=== PATIENT | male | born 1945 | race Two or more races ===

== ENCOUNTER 2017-08-27 22:31 | Inpatient (IN) | payer MEDICARE ==
[~2017-08-27] VITALS: Ht 182.9 cm; Wt 81.6 kg
[2017-08-27] MEDS ORDERED: MAGNESIUM HYDROXIDE 30 ML UDC PO PRN (23:30)
[2017-08-27] MEDS ORDERED: MAG HYDROX/AL HYDROX/SIMETH 30 ML UDC PO PRN (23:30)
[2017-08-27] MEDS ORDERED: DICL25TA10 (23:32)
[2017-08-27] MEDS ORDERED: IBUP-1955 (23:32)
[2017-08-27] MEDS ORDERED: AMLO10TA2 (23:32)
[2017-08-27] MEDS ORDERED: LISI40TA4 (23:32)
[2017-08-27] MEDS ORDERED: TAMS0.4C34 (23:32)
[2017-08-27] MEDS ORDERED: FOLI0.4T2 (23:32)
[2017-08-27] MEDS ORDERED: FLUT16SP (23:32)
[2017-08-27] MEDS ORDERED: BENA20TA78 (23:32)
[2017-08-27 23:58] VITALS: BP 133/71
--- NOTE | 2017-08-27 23:59 | NUR ---
ADMISSION NOTES ADMITTED THIS 72 Y/O MALE PATIENT DIRECT ADMIT FROM [facility]. PT IS ON 5150 HOLD FOR GD PER HOLD BIZARRE BEHAVIOR DISORIENTED , UNABLE TO CARE FOR HIM SELF UPON FACE TO FACE ASSESSMENT PATIENT IS A&O X1-2, DISORIENTED DISORGANIZED THOUGHTS DISHEVELD , IRRITABLE, EASILY AGITATED AND EASILY GETS CONFUSED,THE PT. MOOD S DYSPHORIC , DEPRESSED PT. IS POOR HISTORIAN, POOR INSIGHT ,POOR JUDGEMENT ,V/S WNL, NO ACUTE RESPIRATORY BOTH MD AWARE AND NOTIFIED OF THE ADMISSION. SKIN ASSESSMENT DONE,NOTED MULTIPLES SCABS AND BRUSIES PICTURE TAKEN AND PLACED IN THE CHART . MRSA SWAB NARES TAKEN. BELONGINGS AND CONTRABAND CHECKED AND PLACED IN THE SAFE CABINET. PATIENT RIGHT HAND BOOK GIVEN AND EXPLAINED TO THE PT. ALL NEEDS ATTENDED AND ANTICIPATED.ENCOURAGED PT. VERVALIZED ANY FEELING OR CONCERN TO STAFF, ORIENTED TO UNIT WILL CONTINUE TO MONITOR FOR SAFETY AND BEHAVIOR.
[2017-08-28 06:06] VITALS: BP 133/71
--- NOTE | 2017-08-28 06:20 | NUR ---
RN GPS NOTES PT. SLEPT 6.5 HOURS , SHOWER GIVEN , BILATERAL LOWER EXTREMITIES NON PITTING EDEMA NOTED , NO ACUTE DISTRESS NOTED ,WILL CONTINUE TO MONITOR
[2017-08-28 06:45] LABS: ALANINE AMINOTRANSFERASE 17 U/L (12-78); ALBUMIN 2.3 g/dL (3.4-5.0); ALKALINE PHOSPHATASE 74 U/L (46-116); ASPARTATE AMINOTRANSFERASE 29 U/L (15-37); BILIRUBIN,TOTAL 0.7 mg/dL (0.2-1.0); CALCIUM, SERUM 8.7 mg/dL (8.5-10.1); CARBON DIOXIDE 27 mmol/L (21-32); CHLORIDE 111 mmol/L (98-107); CHOLESTEROL 117 mg/dL (<200); CREATININE 1.6 mg/dL (0.6-1.3); GLUCOSE 143 mg/dL (74-106); HDL CHOLESTEROL 46 mg/dL (40-60); LDL 59 mg/dL (0-99); POTASSIUM 3.6 mmol/L (3.5-5.1); SODIUM SERUM 144 mmol/L (136-145); TOTAL PROTEIN, SERUM 6.4 g/dL (6.4-8.2); TRIGLYCERIDES 73 mg/dL (30-150); UREA NITROGEN, BLOOD 32 mg/dL (7-18)
--- NOTE | 2017-08-28 07:04 | NUR ---
RN GPS NOTES PT. SLEPT 6.5 HOURS , BILATERAL LOWER EXTREMITIES NON PITTING EDEMA NOTED , POSTERIOR HEAD ABRASIONS NOTED, DRY SKIN AND GENERALIZED SCABS SCATTERED IN DIFFERENT PARTS OF THE BODY NOTED , PT. HAS VERY POOR HYGINE NOTED AND SHOWER GIVEN, NO ACUTE DISTRESS NOTED ,ENDORSE TO NEXT SHIFT FOR CONTINUITY OF CARE .
[2017-08-28 08:00] VITALS: BP 124/68
[2017-08-28] MEDS: FLUTICASONE PROPIONATE 16 GM BOTTLE NS SCH (09:00)
[2017-08-28] MEDS: BENAZEPRIL HCL 20 MG TABLET PO SCH (09:00)
[2017-08-28] MEDS ORDERED: IBUPROFEN 600 MG TABLET PO PRN (09:00)
[2017-08-28] MEDS: AMLODIPINE BESYLATE 10 MG TABLET PO SCH (09:00)
[2017-08-28] MEDS: clonazePAM 0.5 MG TABLET PO PRN (09:22)
[2017-08-28] MEDS: TAMSULOSIN 0.4 MG CAP.SR.24H PO SCH (09:23)
--- NOTE | 2017-08-28 11:03 | NUR ---
WOUND CARE CONSULT: PT PRESENTS WITH DRY SCABS, SCRATCHES AND DRY ABRASIONS ALL OVER BODY INCLUDING HEAD. NO DRAINAGE NOTED. PT INCONTINENT. RECOMMENDATIONS MADE FOR SKIN PROTECTION AND DISCUSSED WITH NURSING STAFF. WILL SEE PRN. MCCULLOUGH IN AGREEMENT WITH PLAN OF CARE. Addendum: 08/28/17 at 1107 by FISH CAMPBELL WNDNU LOWER EXTREMITY EDEMA NOTED, ESPECIALLY LEFT LOWER LEG. RECOMMEND ELEVATE LEGS. DISCUSSED WITH NURSING STAFF. CURRENT TOYA SCORE 23.
[2017-08-28] MEDS: Z GUARD REMEDY 2 OZ OINT TP SCH (12:47)
[2017-08-28 15:41] VITALS: BP 126/61
--- NOTE | 2017-08-28 16:29 | NUR ---
Initial Discharge Note: Patient resides alone in a house at [address], [address]. [phone] and wishes to return upon discharge. [employer] attempted to follow up with patient's son, David Elizondo at [phone] to confirm /validate some information but was unable to reach him at this time. [employer] left a message with detailed contact information. sheetmetal worker will follow up with son and attempt to get in touch. sheetmetal worker will also follow up with MD. sheetmetal worker will work to arrange safe and proper discharge for the patient.
[2017-08-28] MEDS: QUETIAPINE FUMARATE 25 MG TABLET PO SCH (16:39)
[2017-08-28 19:28] VITALS: BP 129/66
[2017-08-29 08:00] VITALS: BP 132/73
[2017-08-29] MEDS: TAMSULOSIN 0.4 MG CAP.SR.24H PO SCH (09:29)
[2017-08-29] MEDS: QUETIAPINE FUMARATE 25 MG TABLET PO SCH ×2 (09:30→17:30)
[2017-08-29] MEDS: AMLODIPINE BESYLATE 10 MG TABLET PO SCH (09:30)
[2017-08-29] MEDS: BENAZEPRIL HCL 20 MG TABLET PO SCH (09:30)
[2017-08-29] MEDS: Z GUARD REMEDY 2 OZ OINT TP SCH (09:31)
[2017-08-29] MEDS: FLUTICASONE PROPIONATE 16 GM BOTTLE NS SCH (09:32)
--- NOTE | 2017-08-29 15:09 | NUR ---
UZMA contacted pt's son, David Elizondo at [phone]. David stated that he was not sure but thinks that his father was at a rehab facility for a couple of months. David could not recall the name of the facility. David stated that he believed it was located in [place]. David stated that his father cannot return home because his condition is deteriorating and that David already takes care of his mother. David stated that he would like his father placed in a nursing facility if possible. UZMA will follow up. David also told SW that his father makes about $1200/month in SSI.
[2017-08-29 16:00] VITALS: BP 112/59
[2017-08-29 18:35] LABS: APPEARANCE,URINE SL CLOUDY (CLEAR); BILIRUBIN,URINE NEGATIVE (NEGATIVE); BLOOD, URINE 1+ Ery/uL (NEGATIVE); COLOR,URINE YELLOW (YELLOW); KETONES,URINE NEGATIVE (NEGATIVE); LEUKOCYTE ESTERASE ,URINE 3+ (NEGATIVE); NITRITE, URINE NEGATIVE (NEGATIVE); PH,URINE 5.5 (5.0-8.0); PROTEIN,URINE NEGATIVE (NEGATIVE); UGLUCOSE NEGATIVE (NEGATIVE); UROBILINOGEN,URINE 0.2 EU/dL (0.2)
[2017-08-29 19:31] VITALS: BP 122/62
[2017-08-29 19:48] LABS: BACTERIA,URINE Many /HPF (None Seen); SQUAMOUS EPITHELIAL CELL,UR Few /HPF (None Seen); WBC,URINE TOO NUMEROUS TO COUN /HPF (0-3)
[2017-08-30 08:00] VITALS: BP 118/68
[2017-08-30] MEDS: AMLODIPINE BESYLATE 10 MG TABLET PO SCH (08:19)
[2017-08-30] MEDS: TAMSULOSIN 0.4 MG CAP.SR.24H PO SCH (08:19)
[2017-08-30] MEDS: BENAZEPRIL HCL 20 MG TABLET PO SCH (08:19)
[2017-08-30] MEDS: QUETIAPINE FUMARATE 25 MG TABLET PO SCH ×3 (08:19→16:41)
[2017-08-30] MEDS: FLUTICASONE PROPIONATE 16 GM BOTTLE NS SCH (08:20)
[2017-08-30] MEDS: Z GUARD REMEDY 2 OZ OINT TP PRN (08:20)
[2017-08-30] MEDS: Z GUARD REMEDY 2 OZ OINT TP SCH (08:23)
[2017-08-30] MEDS ORDERED: LEVOFLOXACIN (500MG) 500 MG TABLET PO ONE (11:30)
--- NOTE | 2017-08-30 11:35 | NUR ---
UZMA faxed over an inquiry for potential placement to Anna from [facility], [address] [place] [address], . The fax number is: [phone]. UZMA contacted Anna to confirm the fax. UZMA will follow up.
--- NOTE | 2017-08-30 12:22 | NUR ---
Maya in admissions from [facility], [address] [place] [address], called and stated that the only concern about patient is that he is long-term and does not have [facility]. Maya stated that they can help apply the patient for [facility] but they will need some information from patient's son. UZMA stated that she will give the son a call and direct him to Maya. Maya stated that they can come and assess the patient on Sunday. UZMA will follow up with MD and will confirm with Maya once the okay is given by psychiatrist for assessment.
--- NOTE | 2017-08-30 14:36 | NUR ---
UZMA contacted pt's son, David [phone] and updated him on father's placement. UZMA stated that the facility would need some more information from him because they would like to help his father apply for [facility]. David stated that he would prefer it if the facility reached out to him and told UZMA that it would be okay for her to provide the facility with his cell phone number. UZMA reached out to Maya from [facility], [address] [place] [id number], and provided her with David's contact information.
--- NOTE | 2017-08-30 15:20 | NUR ---
Received a call from ultrasound and reported that pt. is retaining urine of 551 cc of urine and primary nurse Nikki made aware.
--- NOTE | 2017-08-30 15:32 | NUR ---
GPS/RN PATIENT VOIDING FREELY AT THIS TIME, NO PAIN, NO S/S OF DISTRESS, VOIDED 2X SINCE BEGINNING OF SHIFT, WILL CONTINUE TO MONITOR.
[2017-08-30 16:05] VITALS: BP 124/75
--- NOTE | 2017-08-30 17:30 | NUR ---
GPS/RN RESPIRATORY CAME TO OBTAIN EKG, PATIENT WAS EATING AND BECAME AGITATED, STATED THEY WOULD RETURN AT A LATER TIME TO OBTAIN EKG.
[2017-08-30 19:51] VITALS: BP 121/77
[2017-08-30 20:14] VITALS: BP 121/77
[2017-08-31 06:45] LABS: CALCIUM, SERUM 8.8 mg/dL (8.5-10.1); CARBON DIOXIDE 26 mmol/L (21-32); CHLORIDE 107 mmol/L (98-107); CREATININE 1.4 mg/dL (0.6-1.3); GLUCOSE 122 mg/dL (74-106); POTASSIUM 4.1 mmol/L (3.5-5.1); SODIUM SERUM 140 mmol/L (136-145); UREA NITROGEN, BLOOD 36 mg/dL (7-18)
[2017-08-31 08:00] VITALS: BP 100/60
[2017-08-31] MEDS: AMLODIPINE BESYLATE 10 MG TABLET PO SCH (09:00)
[2017-08-31] MEDS: BENAZEPRIL HCL 20 MG TABLET PO SCH (09:00)
[2017-08-31] MEDS: QUETIAPINE FUMARATE 25 MG TABLET PO SCH ×3 (09:22→16:29)
[2017-08-31] MEDS: TAMSULOSIN 0.4 MG CAP.SR.24H PO SCH (09:22)
[2017-08-31] MEDS: FLUTICASONE PROPIONATE 16 GM BOTTLE NS SCH (09:22)
[2017-08-31] MEDS: Z GUARD REMEDY 2 OZ OINT TP SCH (09:23)
[2017-08-31] MEDS: LEVOFLOXACIN (250MG) 250 MG TABLET PO SCH (12:06)
[2017-08-31 16:00] VITALS: BP 127/76
[2017-08-31 20:00] VITALS: BP_SYST 121; BP_SYST 140; BP_DIAS 73; BP_DIAS 80
--- NOTE | 2017-09-01 07:18 | NUR ---
asleep most of night,no c/o
[2017-09-01 08:00] VITALS: BP 135/75
[2017-09-01] MEDS: FLUTICASONE PROPIONATE 16 GM BOTTLE NS SCH (09:00)
[2017-09-01] MEDS: AMLODIPINE BESYLATE 10 MG TABLET PO SCH (09:00)
[2017-09-01] MEDS: TAMSULOSIN 0.4 MG CAP.SR.24H PO SCH (09:01)
[2017-09-01] MEDS: QUETIAPINE FUMARATE 25 MG TABLET PO SCH ×3 (09:01→16:20)
[2017-09-01] MEDS: BENAZEPRIL HCL 20 MG TABLET PO SCH (09:01)
[2017-09-01] MEDS: Z GUARD REMEDY 2 OZ OINT TP SCH (09:16)
[2017-09-01 16:00] VITALS: BP 127/81
[2017-09-01 20:00] VITALS: BP 165/73
[2017-09-01] MEDS: TEMAZEPAM 7.5 MG CAPSULE PO PRN (21:45)
[2017-09-02 07:56] VITALS: BP 130/70
[2017-09-02] MEDS: TAMSULOSIN 0.4 MG CAP.SR.24H PO SCH (08:16)
[2017-09-02] MEDS: BENAZEPRIL HCL 20 MG TABLET PO SCH (08:16)
[2017-09-02] MEDS: QUETIAPINE FUMARATE 25 MG TABLET PO SCH ×3 (08:16→16:59)
[2017-09-02] MEDS: FLUTICASONE PROPIONATE 16 GM BOTTLE NS SCH (08:17)
[2017-09-02] MEDS: AMLODIPINE BESYLATE 10 MG TABLET PO SCH (08:17)
[2017-09-02] MEDS: Z GUARD REMEDY 2 OZ OINT TP SCH (08:18)
[2017-09-02] MEDS: LEVOFLOXACIN (250MG) 250 MG TABLET PO SCH (12:49)
[2017-09-02 16:00] VITALS: BP 105/54
--- NOTE | 2017-09-02 17:11 | NUR ---
GPS/RN PATIENT VOIDED 2X SINCE BEGINNING OF SHIFT, 1 SMALL BM , WILL CONTINUE TO MONITOR.
[2017-09-02 19:48] VITALS: BP 105/60
[2017-09-03 08:00] VITALS: BP 124/69
[2017-09-03] MEDS: TAMSULOSIN 0.4 MG CAP.SR.24H PO SCH (08:16)
[2017-09-03] MEDS: QUETIAPINE FUMARATE 25 MG TABLET PO SCH ×3 (08:16→16:57)
[2017-09-03] MEDS: AMLODIPINE BESYLATE 10 MG TABLET PO SCH (08:17)
[2017-09-03] MEDS: FLUTICASONE PROPIONATE 16 GM BOTTLE NS SCH (08:17)
[2017-09-03] MEDS: BENAZEPRIL HCL 20 MG TABLET PO SCH (08:17)
[2017-09-03] MEDS: Z GUARD REMEDY 2 OZ OINT TP SCH (08:19)
[2017-09-03 16:08] VITALS: BP 113/59
[2017-09-03 20:12] VITALS: BP 112/68
[2017-09-03] MEDS: TEMAZEPAM 7.5 MG CAPSULE PO PRN (21:55)
[2017-09-04 08:15] VITALS: BP 121/58
[2017-09-04] MEDS: TAMSULOSIN 0.4 MG CAP.SR.24H PO SCH (08:42)
[2017-09-04] MEDS: BENAZEPRIL HCL 20 MG TABLET PO SCH (08:42)
[2017-09-04] MEDS: QUETIAPINE FUMARATE 25 MG TABLET PO SCH ×3 (08:42→16:37)
[2017-09-04] MEDS: AMLODIPINE BESYLATE 10 MG TABLET PO SCH (08:42)
[2017-09-04] MEDS: Z GUARD REMEDY 2 OZ OINT TP SCH (08:44)
[2017-09-04] MEDS: FLUTICASONE PROPIONATE 16 GM BOTTLE NS SCH (08:44)
--- NOTE | 2017-09-04 09:50 | NUR ---
wine cellar worker spoke to Maya in admissions from [facility], [address] [place] [address], who stated that they cannot accept the patient stating that he would not be a fit for their unit and are afraid that he will walk out.
[2017-09-04] MEDS: LEVOFLOXACIN (250MG) 250 MG TABLET PO SCH (12:50)
[2017-09-04 15:59] VITALS: BP 125/69
--- NOTE | 2017-09-04 16:12 | NUR ---
UZMA faxed over an inquiry to Benoit from [facility], at fax number [phone]. UZMA will follow up.
[2017-09-04 20:24] VITALS: BP 126/75
[2017-09-04] MEDS: clonazePAM 0.5 MG TABLET PO PRN (21:14)
--- NOTE | 2017-09-04 21:15 | NUR ---
GPS/RN OTE: C/O ANXIETY, KLONOPIN .25 MG TAB PO GIVEN.
[2017-09-05] MEDS: QUETIAPINE FUMARATE 25 MG TABLET PO SCH ×3 (08:31→16:55)
[2017-09-05] MEDS: BENAZEPRIL HCL 20 MG TABLET PO SCH (08:31)
[2017-09-05] MEDS: TAMSULOSIN 0.4 MG CAP.SR.24H PO SCH (08:31)
[2017-09-05] MEDS: AMLODIPINE BESYLATE 10 MG TABLET PO SCH (08:31)
[2017-09-05] MEDS: FLUTICASONE PROPIONATE 16 GM BOTTLE NS SCH (08:32)
[2017-09-05] MEDS: Z GUARD REMEDY 2 OZ OINT TP SCH (08:32)
[2017-09-05 08:52] VITALS: BP 125/58
--- NOTE | 2017-09-05 09:20 | NUR ---
UZMA spoke with Benoit from [facility], who stated that they received the inquiry will review it.
--- NOTE | 2017-09-05 16:42 | NUR ---
Benoit in admissions from [facility], messaged UZMA and stated that the [facility] wants to assess the patient in person before offering placement. UZMA messaged that tomorrow would be a good time for assessment. UZMA did not hear back from Benoit. UZMA will follow up in the morning.
[2017-09-05 16:48] VITALS: BP 120/60
--- NOTE | 2017-09-05 18:23 | NUR ---
PER STEAMFITTER APPRENTICE NURSE, PT HAD 3 LIQUID, LOOSE STOOL DURING THE NIGHT. INFORMED DR RODRIGUEZ THIS MORNING. PER DR. RODRIGUEZ TO ORDER CDIFF SAMPLE WHEN PATIENT HAS A BM. PT DID NOT HAVE A BM DURING AM SHIFT. WILL ENDORSE TO NIGHT TO COLLECT STOOL WHEN PATIENT HAS A BM AND ORDER CDIFF SAMPLE COLLECTION PER DR. RODRIGUEZ.
[2017-09-05 20:07] VITALS: BP 128/64
[2017-09-05] MEDS: TEMAZEPAM 7.5 MG CAPSULE PO PRN (20:25)
[2017-09-06 06:30] LABS: BASOPHILS % (AUTO) 0.5 % (0.0-2.0); EOSINOPHILS # (AUTO) 0.1 /CMM (0.0-0.7); EOSINOPHILS % (AUTO) 3.1 % (0.0-6.0); HEMATOCRIT 28 % (39-51); HEMOGLOBIN 9.2 g/dL (13.5-17.5); LYMPHOCYTES # (AUTO) 1.3 /CMM (0.8-4.8); LYMPHOCYTES % (AUTO) 29.2 % (20.0-44.0); MEAN CORPUSCULAR HEMOGLOBIN 26 PG (26.0-33.0); MEAN CORPUSCULAR HGB CONC 33 g/dl (31.0-36.0); MEAN CORPUSCULAR VOLUME 79 fL (80-96); MONOCYTES # (AUTO) 0.3 /CMM (0.1-1.30); MONOCYTES % (AUTO) 7.2 % (2.0-12.0); NEUTROPHILS # (AUTO) 2.7 /CMM (1.8-8.9); PLATELET COUNT (AUTO) 138 /CMM (150-450); RDW COEFFICIENT OF VARIATION 17.9 (11.5-15.0); RED BLOOD CELL COUNT(AUTO) 3.52 MIL/uL (4.5-6.0); WHITE BLOOD COUNT (AUTO) 4.5 K/uL (4.3-11.0)
[2017-09-06 06:33] LABS: CALCIUM, SERUM 8.5 mg/dL (8.5-10.1); CREATININE 1.5 mg/dL (0.6-1.3); GLUCOSE 97 mg/dL (74-106); UREA NITROGEN, BLOOD 29 mg/dL (7-18)
[2017-09-06 06:42] LABS: ALBUMIN 2.3 g/dL (3.4-5.0); BILIRUBIN,DIRECT 0.1 mg/dL (0.0-0.2); BILIRUBIN,TOTAL 0.5 mg/dL (0.2-1.0); MAGNESIUM 1.9 mg/dL (1.8-2.4); PHOSPHORUS 3.3 mg/dL (2.5-4.9); TOTAL PROTEIN, SERUM 6.2 g/dL (6.4-8.2)
[2017-09-06 06:47] LABS: CARBON DIOXIDE 29 mmol/L (21-32); CHLORIDE 108 mmol/L (98-107); POTASSIUM 4.1 mmol/L (3.5-5.1); SODIUM SERUM 143 mmol/L (136-145)
[2017-09-06 08:23] VITALS: BP 115/64
[2017-09-06] MEDS: TAMSULOSIN 0.4 MG CAP.SR.24H PO SCH (09:09)
[2017-09-06] MEDS: AMLODIPINE BESYLATE 10 MG TABLET PO SCH (09:09)
[2017-09-06] MEDS: QUETIAPINE FUMARATE 25 MG TABLET PO SCH ×3 (09:09→17:34)
[2017-09-06] MEDS: BENAZEPRIL HCL 20 MG TABLET PO SCH (09:09)
[2017-09-06] MEDS: Z GUARD REMEDY 2 OZ OINT TP PRN (09:14)
[2017-09-06] MEDS: FLUTICASONE PROPIONATE 16 GM BOTTLE NS SCH (09:15)
[2017-09-06] MEDS: Z GUARD REMEDY 2 OZ OINT TP SCH (09:15)
--- NOTE | 2017-09-06 09:18 | NUR ---
Benoit in admissions from [facility], informed SW that they will be assessing patient today for placement.
--- NOTE | 2017-09-06 11:42 | NUR ---
Benoit in admissions from [facility], came to assess patient and stated that he was a good fit for the facility. Benoit stated that he will confirm with social service technician if patient will be able to be transferred tomorrow.
[2017-09-06 17:06] VITALS: BP 131/74
[2017-09-06 17:09] VITALS: BP 131/74
[2017-09-06 20:00] VITALS: BP 106/69
[2017-09-07 08:00] VITALS: BP 125/77
--- NOTE | 2017-09-07 08:00 | NUR ---
RN-CO: DR Garcia gave an order to discontinue hold and discharge patient today to [facility]. Patient remains calm and cooperative to care. No acute distress noted, vital signs are as follows: 125/77,98/18,70,96,0/10. Fernando Elizondo [phone] was called 2x, nobody is answering but left a message. AUGUSTO Costa was notified.
[2017-09-07] MEDS: TAMSULOSIN 0.4 MG CAP.SR.24H PO SCH (09:00)
[2017-09-07] MEDS: QUETIAPINE FUMARATE 25 MG TABLET PO SCH ×2 (09:00→13:30)
[2017-09-07] MEDS: BENAZEPRIL HCL 20 MG TABLET PO SCH (09:01)
[2017-09-07] MEDS: Z GUARD REMEDY 2 OZ OINT TP SCH (09:05)
[2017-09-07] MEDS: FLUTICASONE PROPIONATE 16 GM BOTTLE NS SCH (09:06)
[2017-09-07 09:07] VITALS: BP 125/77
[2017-09-07] MEDS: AMLODIPINE BESYLATE 10 MG TABLET PO SCH (09:07)
--- NOTE | 2017-09-07 11:28 | NUR ---
RN-CO: All belongings will be given back to the patient upon discharge.
--- NOTE | 2017-09-07 11:57 | NUR ---
Discharge Note: Patient will be discharged to [facility] [address] [place] [address], via ambulance at 2pm. oncology social worker made ambulance arrangements through [employer] with [facility], trip number [id number]. oncology social worker left a voicemail with patients son, David Elizondo [phone], informing him of the discharge and asking him to call with any questions. oncology social worker left contact information. When speaking with David previously, he made no suggestions or objections to patients placement. David had stated he wanted his father in a fdc because he could not take care of him. Prior to hospitalization, David did not know where his father was located. Patient will follow up with his psychiatrist, Dr. Monte [address] [place] [address] [phone] on Sunday, 09/09 at 10am. Patient will also be seen by his presser all around, Dr. Hernandez [address] [facility] [address] [address] [address] [phone] on Sunday 09/09 at 1pm.
--- NOTE | 2017-09-07 14:00 | NUR ---
GPS RN: PATIENT DISCHARGED TO [facility]. PATIENT'S CONDITION IS STABLE FOR DISCHARGE, VS STABLE, NO AGITATION, COMPLIANT WITH MEDICATION INTAKE, DENIES SI/HI AT THE TIME OF DISCHARGE. ALL BELONGINGS RETURNED TO THE PATIENT. MEDICATIONS RECONCILED AND THE COPY OF THE CURRENT MED LIST PROVIDED TO THE PATIENT. REPORT GIVEN TO MELIA MORRISON AT THE FACILITY. PATIENT LEFT THE UNIT ON A GURNEY, [facility].
== END 2017-09-07 14:00 | DRG 885 ==
LOC: GPS 22:31
PROVIDERS: ADMIT Psychiatry & Neurology Psychiatry
DX: F29 Unspecified psychosis not due to a substance or known physiological condition (principal); F02.80 Dementia in other diseases classified elsewhere, unspecified severity, without behavioral disturbance, psychotic disturbance, mood disturbance, and anxiety; E43 Unspecified severe protein-calorie malnutrition; N17.0 Acute kidney failure with tubular necrosis; N18.9 Chronic kidney disease, unspecified; G93.41 Metabolic encephalopathy; G30.9 Alzheimer's disease, unspecified; N39.0 Urinary tract infection, site not specified; Z73.6 Limitation of activities due to disability; F41.9 Anxiety disorder, unspecified; I12.9 Hypertensive chronic kidney disease with stage 1 through stage 4 chronic kidney disease, or unspecified chronic kidney disease; M62.50 Muscle wasting and atrophy, not elsewhere classified, unspecified site; Z68.24 Body mass index [BMI] 24.0-24.9, adult; N40.1 Benign prostatic hyperplasia with lower urinary tract symptoms; T14.8XXA Other injury of unspecified body region, initial encounter; X58.XXXA Exposure to other specified factors, initial encounter; Y93.9 Activity, unspecified; Y92.009 Unspecified place in unspecified non-institutional (private) residence as the place of occurrence of the external cause; F32.9 Major depressive disorder, single episode, unspecified
CPT/HCPCS: 36415; 70450-TC; 76770-TC; 80048-TC; 80053-TC; 80061-TC; 80076-TC; 81000-TC; 83735-TC; 84100-TC; 84425; 84443-TC; 85025-TC; 87081-TC; Z7610